=== PATIENT | female | born 1965 | race Caucasian/White ===

== ENCOUNTER → 2019-07-20 11:07 | Outpatient (CLI) | payer OTHER, SELFPAY ==
--- NOTE | 2019-07-20 | DI.MG.S_ITS ---
BILATERAL DIGITAL DIAGNOSTIC MAMMOGRAM 3D/2D WITH AUGMENTATION: 07/20/2019 CLINICAL: Right breast lump. Comparison is made to exams dated: 05/13/2017 mammogram - [facility] and 01/30/2016 mammogram - [facility] MAMMO[facility]. The tissue of both breasts is extremely dense, which lowers the sensitivity of mammography. No significant masses, calcifications, or other findings are seen in either breast. The bilateral saline breast implants are intact and have a stable appearance. IMPRESSION: INCOMPLETE: NEEDS ADDITIONAL IMAGING EVALUATION There is no abnormality seen in the right breast to correspond with the area of clinical concern and palpable abnormality indicated by triangular marker at 9 o'clock in the posterior depth, however, ultrasound which is scheduled to immediately follow this examination. This exam was interpreted at Station ID: [id number]. NOTE: For mammograms, a report in lay terms will be sent to the patient. Approximately 15% of breast malignancies will not be visualized mammographically. In the management of a palpable breast mass, a negative mammogram must not discourage biopsy of a clinically suspicious lesion. Electronically Signed By: Yousuf Zimmerman M.D. aty/:07/20/2019 13:02:36 ACR BI-RADS Category 0: Incomplete 3340F
--- NOTE | 2019-07-20 | DI.US.S_ITS ---
ULTRASOUND OF RIGHT BREAST AND AXILLA: 07/20/2019 CLINICAL: Palpable right breast lump. Comparison is made to exams dated: 07/20/2019 mammogram - [facility], 05/13/2017 mammogram - [facility], and 01/30/2016 mammogram - [facility] MAMMO[facility]. Color flow and real-time ultrasound of the right breast axilla were performed. Nuñez scale images of the real-time examination were reviewed. There is a 0.9 cm x 0.7 cm x 0.4 cm wider than tall oval mass with minimal angular margins in the right breast at 9 o'clock posterior depth 9 cm from the nipple. This oval mass is hypoechoic. This correlates as palpated and with area of clinical concern. Color flow imaging demonstrates that there is no vascularity present. It is seen in close proximity to the lateral margin of the implant. No significant abnormalities were seen sonographically in the right axilla. IMPRESSION: SUSPICIOUS OF MALIGNANCY The 0.9 cm x 0.7 cm x 0.4 cm wider than tall oval mass in the right breast is suspicious of malignancy. An ultrasound guided biopsy is recommended. Findings and recommendations were discussed with the patient by Dr. Montoya during today's visit. The findings and biopsy recommendations were also discussed with REY Sommers's medical malpractice paralegal at 1350 hrs. This exam was interpreted at Station ID: [id number]. Electronically Signed By: Yousuf Zimmerman M.D. aty/:07/20/2019 16:36:40 letter sent: Biopsy Required Ultrasound BI-RADS: 4 Suspicious for malignancy
== END ==
PROVIDERS: PCP Physician Assistant; Referring Provider Physician Assistant; Visit Provider Physician Assistant
DX: R92.8 Other abnormal and inconclusive findings on diagnostic imaging of breast (principal); N63.15 Unspecified lump in the right breast, overlapping quadrants; Z98.82 Breast implant status
CPT/HCPCS: 76642; 77066; G0279